=== PATIENT | male | born 1995 | race Caucasian/White ===

== ENCOUNTER 2016-07-24 00:49 | Emergency (ER) | payer MEDICAID, OTHER ==
[~2016-07-24] VITALS: Ht 172.7 cm; Wt 114.0 kg
[~2016-07-24 00:49] MED LIST: MEDR4PAK3 PO
[2016-07-24 01:37] VITALS: BP 134/86; PULSE 114; RESP 16; O2SAT 97
[2016-07-24 01:45] VITALS: BP 144/84; PULSE 102; RESP 16; O2SAT 97
[2016-07-24] MEDS ORDERED: IBUP800T23 PO (02:01)
[2016-07-24] MEDS ORDERED: TRAM50TA PO (02:01)
[2016-07-24] MEDS ORDERED: PENI500T PO (02:01)
--- NOTE | 2016-07-24 02:01 | PD ---
HPI Chief Complaint: Oral / Dental Pain or Problem Time Seen by Provider: 01:59 Travel History International Travel<30 days: No Contact w/Intl Traveler<30days: No Traveled to known affect area: No History of Present Illness HPI 20-year-old male presents to the emergency department with 1 week of dental pain. Patient presents now due to swelling of the gingiva. Patient is not diabetic. No fever or chills or lymphadenopathy. Patient rates current pain 1/ 10 in intensity. Patient is unable to identify exacerbating or alleviating factors. 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 1 or 2) Tympanostomy Tube: Yes Other Surgery: Yes Social History Alcohol Use: Yes (OCC) Tobacco Use: Yes (Chew Tobacco) Substance Use: Yes (occasional psilocybin) Allergies-Medications (Allergen,Severity, Reaction): Coded Allergies: No Known Allergies (Verified , 07/24/16) Reported Meds & Prescriptions Reported Meds & Active Scripts Active Ibuprofen 800 Mg Tab 800 Mg PO Q8H PRN Tramadol (Tramadol HCl) 50 Mg Tab 50 Mg PO Q6H PRN Penicillin V Potassium 500 Mg Tab 500 Mg PO Q6H 7 Days Review of Systems Except as stated in HPI: all other systems reviewed are Neg General / Constitutional: No: Fever, Chills HENT: Positive: Dental Difficulties, No: Congestion Cardiovascular: No: Chest Pain or Discomfort Respiratory: No: Shortness of Breath Gastrointestinal: No: Abdominal Pain Genitourinary: No: Flank Pain Musculoskeletal: No: Myalgias, Arthralgias Skin: No Rash Neurologic: No: Weakness Psychiatric: No: Anxiety Hematologic/Lymphatic: No: Lymph Node Enlargement Physical Exam Narrative GENERAL: Well-developed well-nourished male in acute distress no respiratory distress SKIN: Warm and dry. HEAD: Normocephalic. EYES: No scleral icterus. No injection or drainage. ENT mucous membranes moist airway is patent maxilla gingival edema and induration NECK: Supple, trachea midline. No JVD or lymphadenopathy. CARDIOVASCULAR: Regular rate and rhythm without murmurs, gallops, or rubs. RESPIRATORY: Breath sounds equal bilaterally. No accessory muscle use. GASTROINTESTINAL: Abdomen soft, non-tender, nondistended. MUSCULOSKELETAL: No cyanosis, or edema. BACK: Nontender without obvious deformity. No CVA tenderness. Data Data Last Documented VS Orders Ibuprofen (Motrin) (07/24/16 02:15) MDM Medical Decision Making Medical Screen Exam Complete: Yes Emergency Medical Condition: Yes Medical Record Reviewed: Yes Differential Diagnosis Dentalgia, dental abscess, gingival mass Narrative Course Patient presents with complaint of dental pain although currently pain is only one over 10 in intensity with soft tissue swelling to the maxilla gingiva with induration and tenderness to palpation without central pointing; patient stable for outpatient management and outpatient oral antibiotics. Patient referred to the dentist. Patient encouraged to return to the emergency department for any concerns Diagnosis Primary Impression: Dental abscess Referrals: Dentist call for appointment Patient Instructions: General Instructions Med/Other Pt SpecificInfo: Prescription(s) given Scripts Ibuprofen 800 Mg [id number] Mg PO Q8H PRN (PAIN GREATER THAN 6) #12 TAB Ref 0 Prov:Екатерина Porras MD 07/24/16 Tramadol 50 Mg Tab50 Mg PO Q6H PRN (PAIN) #6 TAB Ref 0 Prov:Екатерина Porras MD 07/24/16 Penicillin V Potassium 500 Mg [id number] Mg PO Q6H 7 Days Ref 0 Prov:Екатерина Porras MD 07/24/16 Disposition: 01 DISCHARGE HOME Condition: Stable Екатерина Porras MD July 24, 2016 02:01
[2016-07-24] MEDS ORDERED: IBUPROFEN 800 MG TAB PO ONE (02:15)
== END 2016-07-24 02:21 | disposition home or self-care (01) ==
LOC: PHED 00:49
DX: K04.7 Periapical abscess without sinus (principal); F17.220 Nicotine dependence, chewing tobacco, uncomplicated
CPT/HCPCS: 99282

== ENCOUNTER 2017-03-08 00:40 | Emergency (ER) | payer SELFPAY ==
[~2017-03-08] VITALS: Ht 167.6 cm; Wt 127.7 kg
[~2017-03-08 00:40] MED LIST changes: +IBUP1TAB7 PO; -MEDR4PAK3 PO; +PENI500T PO; +TRAM50TA PO
[2017-03-08 00:45] VITALS: BP 141/91; PULSE 104; RESP 18; TEMP 98.8; O2SAT 97
[2017-03-08] MEDS ORDERED: PENI500T PO (01:06)
[2017-03-08] MEDS ORDERED: IBUP1TAB7 PO (01:06)
[2017-03-08] MEDS ORDERED: TRAM50TA PO (01:06)
--- NOTE | 2017-03-08 01:06 | PD ---
HPI Chief Complaint: Oral / Dental Pain or Problem Time Seen by Provider: 00:50 Travel History International Travel<30 days: No Contact w/Intl Traveler<30days: No Traveled to known affect area: No History of Present Illness HPI The patient is a 21-year-old male that complains of dental pain around teeth 6, 7 and 8. He states it's in the gums. He states antibiotics not get back but he has not seen a dentist about this and he keeps coming into the emergency department for pain medications and antibiotics. He denies any fever or abscess formation. The patient does have a history of drug abuse, his 2010 toxicology screen was positive for benzodiazepines, opiates and cannabinoids. 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2) Tympanostomy Tube: Yes Other Surgery: Yes Social History Alcohol Use: Yes (OCC) Tobacco Use: Yes (Chew Tobacco) Substance Use: Yes (occasional psilocybin) Allergies-Medications (Allergen,Severity, Reaction): Coded Allergies: No Known Allergies (Verified Adverse Reaction, Unknown, 03/08/17) Reported Meds & Prescriptions Reported Meds & Active Scripts Active No Active Prescriptions or Reported Medications Review of Systems Except as stated in HPI: all other systems reviewed are Neg Physical Exam Narrative GENERAL: Well-nourished, well-developed patient in slight apparent distress with his dental pain. His vital signs are normal except for blood pressure 141/ 91. SKIN: Focused skin assessment warm/dry. HEAD: Normocephalic. EYES: No scleral icterus. No injection or drainage. NECK: Supple, trachea midline. No JVD or lymphadenopathy. CARDIOVASCULAR: Regular rate and rhythm without murmurs, gallops, or rubs. RESPIRATORY: Breath sounds equal bilaterally. No accessory muscle use. GASTROINTESTINAL: Abdomen soft, non-tender, nondistended. MUSCULOSKELETAL: No cyanosis, or edema. BACK: Nontender without obvious deformity. No CVA tenderness. DENTAL: No loose or chipped teeth. No malocclusion. There is tenderness around teeth 67 and 8 without any drainable abscesses. The gingiva look fairly good. Data Data Last Documented VS Vital Signs Date Time Temp Pulse Resp B/P (MAP) Pulse Ox O2 Delivery O2 Flow Rate FiO2 03/08/17 00:45 98.8 104 18 141/91 (108) 97 MDM Medical Decision Making Medical Screen Exam Complete: Yes Emergency Medical Condition: Yes Medical Record Reviewed: Yes Differential Diagnosis Dental infection, drug seeking behavior, drainable dental abscess Narrative Course The patient appears to have a dental infection. He does not appear to have a drainable dental abscess. Additional Instructions: As we discussed, it is necessary to follow-up with a dentist. We cannot definitively treat dental infections in the emergency department. Med/Other Pt SpecificInfo: Prescription(s) given Scripts Tramadol (Tramadol) 50 Mg Tab 50 MG PO Q6H Y for PAIN, #15 TAB 0 Refills Prov: Mookie Ken MD 03/08/17 Ibuprofen (Ibuprofen) 800 Mg Tab 800 MG PO TID for Arthritis Pain, #21 TAB 0 Refills Prov: Mookie Ken MD 03/08/17 Penicillin V Potassium (Penicillin V Potassium) 500 Mg Tab 500 MG PO Q6H for Infection, #40 TAB 0 Refills Prov: Mookie Ken MD 03/08/17 Disposition: 01 DISCHARGE HOME Condition: Stable Mookie Ken MD Mar 08, 2017 01:06
[2017-03-08] MEDS ORDERED: IBUPROFEN 800 MG TAB PO ONE (01:15)
[2017-03-08] MEDS ORDERED: PENICILLIN V POTASSIUM 500 MG TAB PO ONE (01:15)
== END 2017-03-08 01:29 | disposition home or self-care (01) ==
LOC: PHED 00:40
DX: K04.7 Periapical abscess without sinus (principal)
CPT/HCPCS: 99284